=== PATIENT | male | born 1990 | race Caucasian/White ===

== ENCOUNTER 2024-02-21 17:08 | Emergency (ER) | payer SELFPAY ==
[~2024-02-21] VITALS: Ht 157.5 cm; Wt 68.0 kg
[2024-02-21 17:17] VITALS: O2SAT 99
[2024-02-21 17:48] VITALS: BP 133/80; PULSE 88; RESP 16; TEMP 98; O2SAT 100
[2024-02-21] MEDS: LIDOCAINE HCL 1% 20ML VIAL INFIL ONE (18:24)
== END 2024-02-21 19:18 | disposition home or self-care (01) ==
LOC: ER 17:08
DX: S00.432A Contusion of left ear, initial encounter (principal); Z88.6 Allergy status to analgesic agent; X58.XXXA Exposure to other specified factors, initial encounter; Y93.89 Activity, other specified; Y92.89 Other specified places as the place of occurrence of the external cause; Y99.8 Other external cause status
CPT/HCPCS: 10060; 99282; J3490; Z7610 ×3

== ENCOUNTER 2024-02-28 17:10 | Emergency (ER) | payer SELFPAY ==
[~2024-02-28] VITALS: Ht 172.7 cm; Wt 66.0 kg
[2024-02-28 17:14] VITALS: O2SAT 98
[2024-02-28 17:22] VITALS: BP 153/91; PULSE 88; RESP 18; TEMP 98.1; O2SAT 100
[2024-02-28] MEDS: LIDOCAINE HCL 1% 20ML VIAL INFIL ONE (18:34)
[2024-02-28] MEDS ORDERED: CIPR500T5 MT (19:24)
== END 2024-02-28 20:08 | disposition left against medical advice (07) ==
LOC: ER 17:10
DX: S00.432A Contusion of left ear, initial encounter (principal); X58.XXXA Exposure to other specified factors, initial encounter; Y93.89 Activity, other specified; Y92.89 Other specified places as the place of occurrence of the external cause; Y99.8 Other external cause status
CPT/HCPCS: 69000; 99283; J3490; Z7610 ×4

== ENCOUNTER 2024-03-11 09:46 | Emergency (ER) | payer SELFPAY ==
[~2024-03-11] VITALS: Ht 152.4 cm; Wt 65.0 kg
[~2024-03-11 09:46] MED LIST: CIPR500T5 MT
[2024-03-11 10:11] VITALS: TEMP 98.9; O2SAT 100
[2024-03-11 12:30] VITALS: BP 118/78; PULSE 68; RESP 14; O2SAT 99
== END 2024-03-11 12:33 | disposition home or self-care (01) ==
LOC: ER 09:46
DX: S00.432A Contusion of left ear, initial encounter (principal); Z88.6 Allergy status to analgesic agent; X58.XXXA Exposure to other specified factors, initial encounter; Y93.89 Activity, other specified; Y92.89 Other specified places as the place of occurrence of the external cause; Y99.8 Other external cause status
CPT/HCPCS: 99281